=== PATIENT | female | born 1985 | race African-American/Black ===

== ENCOUNTER 2017-01-16 10:47 | Emergency (ER) | payer SELFPAY ==
[~2017-01-16] VITALS: Ht 167.6 cm; Wt 68.0 kg
--- NOTE | 2017-01-16 11:15 | NUR ---
PT BIB [facility] FOR BIZARRE BEHAVIOR, WALKING THROUGH TRAFFIC. PT IS SOMEWHAT UNCOOPERATIVE ON EXAM BUT AFTER THOROUGH REASSURANCE ALLOWS AN EXAM TO BE PERFORMED AND CONSENTS FOR ME ONLY TO DRAW BLOOD. PT CALLING ME "DAUGHTER" AND THE GEOTHERMAL ELECTRICAL ENGINEER WAS CALLED "MOTHER". PT REPORTS SHE TAKES AN "ABILIFY SHOT" ONCE A MONTH "AT THE END OF THE MONTH". DENIES SI/HI, STATING "I JUST DON'T FEEL GOOD". DENIES PHYSICAL COMPLAINTS AND PAIN. IN ER BED 12 ON SUICIDE PRECAUTIONS PER MD.
[2017-01-16] MEDS ORDERED: OLANZAPINE 5 MG TABLET ONE (11:16)
[2017-01-16 11:19] LABS: BASOPHILS # (AUTO) 0.2 /CMM (0.0-0.2); BASOPHILS % (AUTO) 3.6 % (0.0-2.0); EOSINOPHILS # (AUTO) 0.1 /CMM (0.0-0.7); EOSINOPHILS % (AUTO) 2.1 % (0.0-6.0); HEMATOCRIT 33 % (33-45); HEMOGLOBIN 11.5 g/dL (11.5-14.8); LYMPHOCYTES # (AUTO) 1.3 /CMM (0.8-4.8); LYMPHOCYTES % (AUTO) 22.7 % (20.0-44.0); MEAN CORPUSCULAR HEMOGLOBIN 29 PG (26.0-33.0); MEAN CORPUSCULAR HGB CONC 34 g/dl (31.0-36.0); MEAN CORPUSCULAR VOLUME 85 fL (82-100); MONOCYTES # (AUTO) 0.3 /CMM (0.1-1.30); MONOCYTES % (AUTO) 5.5 % (2.0-12.0); NEUTROPHILS % (AUTO) 66.1 % (43.0-81.0); PLATELET COUNT (AUTO) 282 /CMM (150-450); RDW COEFFICIENT OF VARIATION 12.7 (11.5-15.0); RED BLOOD CELL COUNT(AUTO) 3.94 MIL/uL (4.0-5.2); WHITE BLOOD COUNT (AUTO) 5.9 K/uL (4.3-11.0)
[2017-01-16] MEDS: OLANZAPINE 5 MG TABLET PO ONE (11:22)
--- NOTE | 2017-01-16 11:22 | NUR ---
JAMIE TONY CNA AT BEDSIDE FOR SUICIDE SAFETY PRECAUTIONS
[2017-01-16 11:27] LABS: CALCIUM, SERUM 9.1 mg/dL (8.5-10.1); CARBON DIOXIDE 27 mmol/L (21-32); CHLORIDE 106 mmol/L (98-107); CREATININE 1.1 mg/dL (0.6-1.3); GFR 71 mL/min (>60); GLUCOSE 104 mg/dL (74-106); POTASSIUM 3.8 mmol/L (3.5-5.1); SODIUM SERUM 141 mmol/L (136-145); UREA NITROGEN, BLOOD 9 mg/dL (7-18)
[2017-01-16 11:32] LABS: ALANINE AMINOTRANSFERASE 12 U/L (12-78); ALBUMIN 3.9 g/dL (3.4-5.0); ALCOHOL, BLOOD < 3 mg/dL (0-0); ALKALINE PHOSPHATASE 64 U/L (46-116); ASPARTATE AMINOTRANSFERASE 22 U/L (15-37); BILIRUBIN,DIRECT 0.2 mg/dL (0.0-0.2); BILIRUBIN,TOTAL 0.9 mg/dL (0.2-1.0); TOTAL PROTEIN, SERUM 7.5 g/dL (6.4-8.2)
[2017-01-16 11:34] LABS: ACETAMINOPHEN 0 ug/ml (10-30); SALICYLATE < 0.2 mg/dL (2.8-20.0)
--- NOTE | 2017-01-16 12:40 | NUR ---
EDSON, PSYCH CLINICIAN, AT BEDSIDE
--- NOTE | 2017-01-16 13:28 | NUR ---
Patient discharged to home in stable condition. Written and verbal after care instructions given. Patient verbalizes understanding of instruction. AMBULATORY WITH STEADY GAIT. OFFERED TAXI VOUCHER FOR RIDE HOME. PT REFUSES TAXI STATING SHE WILL WALK HOME, AND CORRECTLY STATED ADDRESS AND DIRECTIONS OF HOW TO WALK HOME.
[2017-01-16 13:30] VITALS: BP 136/78
== END 2017-01-16 13:31 | disposition home or self-care (01) ==
LOC: ER 10:49
DX: F31.9 Bipolar disorder, unspecified (principal); J45.909 Unspecified asthma, uncomplicated
CPT/HCPCS: 36415; 80048-TC; 80076-TC; 84703-TC; 85025-TC; A4606; G0480; G6039-TC; Z7610